=== PATIENT | female | born 1950 | race Caucasian/White ===

== ENCOUNTER → 2021-03-10 10:10 | Outpatient (BNVA) | payer MEDICARE, MEDICAID, SELFPAY | PROVIDERS: Family Provider Nurse Practitioner Family; PCP Registered Nurse; Visit Provider Registered Nurse | DX: Z11.52 Encounter for screening for COVID-19 (principal); Z20.822 Contact with and (suspected) exposure to COVID-19 | CPT/HCPCS: 87635 ==

== ENCOUNTER → 2021-03-16 11:11 | Outpatient (BNVA) | payer MEDICARE, MEDICAID, SELFPAY | PROVIDERS: Family Provider Nurse Practitioner Family; PCP Registered Nurse; Visit Provider Registered Nurse | DX: E78.5 Hyperlipidemia, unspecified (principal); J43.8 Other emphysema; I10 Essential (primary) hypertension; F17.200 Nicotine dependence, unspecified, uncomplicated; Z13.6 Encounter for screening for cardiovascular disorders | CPT/HCPCS: 80053; 80061; 85025 ==

== ENCOUNTER → 2023-05-31 10:55 | Outpatient (BNVA) | payer MEDICARE, MEDICAID, SELFPAY | PROVIDERS: Family Provider Nurse Practitioner Family; PCP Registered Nurse; Visit Provider Registered Nurse | DX: Z13.6 Encounter for screening for cardiovascular disorders (principal); E55.9 Vitamin D deficiency, unspecified; E53.8 Deficiency of other specified B group vitamins; E78.5 Hyperlipidemia, unspecified; Z12.31 Encounter for screening mammogram for malignant neoplasm of breast; J43.8 Other emphysema; Z12.2 Encounter for screening for malignant neoplasm of respiratory organs; M81.0 Age-related osteoporosis without current pathological fracture; Z00.00 Encounter for general adult medical examination without abnormal findings; Z71.85 Encounter for immunization safety counseling; F17.200 Nicotine dependence, unspecified, uncomplicated; Z23 Encounter for immunization; Z53.20 Procedure and treatment not carried out because of patient's decision for unspecified reasons; Z71.3 Dietary counseling and surveillance; Z71.82 Exercise counseling | CPT/HCPCS: 80053; 80061; 82306; 82607; 85025 ==

== ENCOUNTER 2023-06-14 09:45 | Outpatient (CLI) | payer MEDICARE, MEDICAID, SELFPAY ==
--- NOTE | 2023-06-14 10:00 | MM_ITS ---
WS: [email or web address] VIEWS: MLO and CC views both breasts. 3D digital tomosynthesis is also included in this exam. Comparison made with prior exam of 02/09/2012, 04/03/2013, 03/24/2014, 05/18/2015, 07/15/2019, Findings: There was no sign of mass, architectural distortion or suspicious calcification in either breast. The breasts are heterogeneously dense which may obscure small masses Impression: MM/[place] [id number] BI-RADS: 2-Benign finding. FOLLOW-UP: 1 Year Follow-up This mammogram was also analyzed by the Computer Aided Detection System [employer].
== END 2023-06-14 09:46 | disposition home or self-care (01) ==
LOC: MOBLMAM 09:53
PROVIDERS: PCP Registered Nurse; Visit Provider Registered Nurse
DX: Z12.31 Encounter for screening mammogram for malignant neoplasm of breast (principal)
CPT/HCPCS: 77063; 77067

== ENCOUNTER 2023-06-18 13:31 | Outpatient (CLI) | payer MEDICARE, MEDICAID, SELFPAY ==
--- NOTE | 2023-06-18 14:15 | CT_ITS ---
WS: [email or web address] LDCT LUNG CANCER SCREENING HISTORY: Z12.2 - Encounter for screening for malignant neoplasm of... TECHNIQUE: Axial imaging performed from the apices to 1 cm below the costophrenic angles. Coronal and sagittal reformats are submitted with axial MIP series. All CT scans at [facility] use at least one of these dose optimization techniques: automated exposure control; mA and/or kV adjustment per patient size (includes targeted exams where dose is matched to clinical indication); or iterativ e reconstruction. DLP: 55.99 mGy.cm DIvol: Mean CTDIvol: 1.00 (mGy) COMPARISON: None available. Diagnostic quality: Satisfactory Lungs: Mild LEFT apical gliosis and scarring. Calcified granuloma RIGHT middle lobe. Subpleural 3 mm nodule RIGHT lower lobe. No mass or pneumonia. No endobronchial lesions. Heart: Normal size heart with no pericardial effusion.. Other findings: Moderate calcification in the [place] coronary arteries. Mild atherosclerosis aorta. N o adenopathy. No pericardial or pleural effusions. Small hiatal hernia. IMPRESSION: CT/CT lung screening [id number] LUNG-RADS: 2-Benign Appearance or Behavior FOLLOW UP: 12 Month: Continue annual screening with LDCT OTHER FINDINGS (S MODIFIER): None.
--- NOTE | 2023-06-18 15:00 | XR_ITS ---
WS: [email or web address] DEXA (DUAL ENERGY X-RAY ABSORPTIOMETRY) Bone mineral density was performed using a Geckoboard machine. HISTORY: M81.0 - Age-related osteoporosis without current patholog... COMPARISON: 07/15/2019 Lumbar spine BMD (L1-L4): 1.029 g/cm2 T score: -1.3 Z score: 0.5 Total hip BMD: Left: 0.715 g/cm2. T score: -2.3 Z score: -0.8 Right: 0.704 g/cm2. T score: -2.4 Z score: -0.9 10 year probability of a major osteoporotic fracture is 32.6%. Compared to the prior study from 07/15/2019. Lumbar spine bone mineral density has increased by 6.2%. Bilateral hips bone mineral density has decreased by 7.4%. IMPRESSION: OSTEOPENIA based upon the WHO classification for females. Significant increase in bone mineral density within the lumbar spine since the prior study. Significant decrease in bone mineral density in the hips since the prior study.
== END 2023-06-18 13:32 | disposition home or self-care (01) ==
LOC: RAD 13:32
PROVIDERS: PCP Registered Nurse; Visit Provider Registered Nurse
DX: Z12.2 Encounter for screening for malignant neoplasm of respiratory organs (principal); M81.0 Age-related osteoporosis without current pathological fracture; J43.8 Other emphysema; M85.80 Other specified disorders of bone density and structure, unspecified site
CPT/HCPCS: 71271; 77080

== ENCOUNTER → 2024-06-10 14:06 | Outpatient (BNVA) | payer MEDICARE, MEDICAID, SELFPAY | PROVIDERS: PCP Registered Nurse; Visit Provider Registered Nurse | DX: Z13.6 Encounter for screening for cardiovascular disorders (principal) | CPT/HCPCS: 80053; 80061; 82306; 85025 ==

== ENCOUNTER 2024-06-27 10:23 | Outpatient (CLI) | payer MEDICARE, MEDICAID, SELFPAY ==
--- NOTE | 2024-06-27 10:30 | CT_ITS ---
WS: [email or web address] LDCT LUNG CANCER SCREENING TECHNIQUE: Noncontrast CT of the chest with coronal and sagittal reformatted images. CLINICAL INFORMATION: Z12.2 lung cancer screening COMPARISON: 2022 DLP: 60.57 mGy.cm DIvol: Mean CTDIvol: 0.90 (mGy) All CT scans at [facility] use at least one of these dose optimization techniques: automat ed exposure control; mA and/or kV adjustment per patient size (includes targeted exams where dose is matched to clinical indication); or iterative reconstruction. FINDINGS: A few calcified granulomas. Stable subpleural 3 mm nodule RIGHT lower lobe. No new suspicious pulmona ry parenchymal abnormalities. Slightly prominent pretracheal lymph node measuring 10 mm likely reacti ve. Otherwise no mediastinal or hilar lymphadenopathy. No axillary lymphadenopathy. Aortic calcification. Coronary calcification. Small esophageal hiatal hernia. Stable LEFT adrenal alvino noma measuring [address]/CT lung screening [id number] IMPRESSION: LUNG-RADS: 2-Benign Appearance or Behavior FOLLOW UP: 12 Month: Continue annual screening with LDCT
== END 2024-06-27 10:24 | disposition home or self-care (01) ==
LOC: RAD 10:24
PROVIDERS: PCP Registered Nurse; Visit Provider Registered Nurse
DX: Z12.2 Encounter for screening for malignant neoplasm of respiratory organs (principal); F17.210 Nicotine dependence, cigarettes, uncomplicated; J84.10 Pulmonary fibrosis, unspecified; R91.1 Solitary pulmonary nodule; I70.0 Atherosclerosis of aorta; I25.84 Coronary atherosclerosis due to calcified coronary lesion; K44.9 Diaphragmatic hernia without obstruction or gangrene; D35.02 Benign neoplasm of left adrenal gland
CPT/HCPCS: 71271

== ENCOUNTER 2024-07-02 12:47 | Outpatient (CLI) | payer MEDICARE, MEDICAID, SELFPAY ==
--- NOTE | 2024-07-02 13:00 | MM_ITS ---
WS: [email or web address] Bilateral screening 3D tomosynthesis digital mammogram, 07/02/2024 1:05 PM Clinical Data: SCREENING Comparison: 06/14/2023, 07/15/2019, 06/07/2015, 05/18/2015, 03/24/2014, 04/03/2013, 02/09/2012. Findings: No spiculated masses or clustered calcifications are seen. There are no secondary signs of carcinoma . MM/MM scr BI tomosynthesis [id number] Impression: Negative bilateral mammogram unchanged. Recommend annual screening mammograms. BIRADS: 1 - Negative. FOLLOW UP: 1 Year Follow-up DENSITY: There are scattered areas of fibroglandular density. The CAD schedule checker was used
== END 2024-07-02 12:48 | disposition home or self-care (01) ==
LOC: MOBLMAM 13:01
PROVIDERS: PCP Registered Nurse; Visit Provider Registered Nurse
DX: Z12.31 Encounter for screening mammogram for malignant neoplasm of breast (principal)
CPT/HCPCS: 77063; 77067

== ENCOUNTER → 2024-08-11 12:05 | Outpatient (BNVA) | payer MEDICARE, MEDICAID, SELFPAY | PROVIDERS: PCP Registered Nurse; Visit Provider Registered Nurse | DX: J06.9 Acute upper respiratory infection, unspecified (principal) | CPT/HCPCS: 87400 ==

== ENCOUNTER → 2025-04-23 11:01 | Outpatient (BNVA) | payer MEDICARE, MEDICAID, SELFPAY | PROVIDERS: PCP Registered Nurse; Visit Provider Registered Nurse | DX: R55 Syncope and collapse (principal) | CPT/HCPCS: 80053; 85025 ==

== ENCOUNTER 2025-07-29 12:41 | Outpatient (CLI) | payer MEDICARE, MEDICAID, SELFPAY ==
--- NOTE | 2025-07-29 12:40 | MM_ITS ---
WS: [email or web address] BILATERAL 3D TOMOSYNTHESIS DIGITAL SCREENING MAMMOGRAPHY WITH CAD CLINICAL INFORMATION: SCREENING HISTORY: Screening mammogram. No current complaints. COMPARISON: 2023 TECHNIQUE: Bilateral CC and MLO views. FINDINGS: The breasts are composed of heterogeneous fibroglandular density tissue, which can limit the detection of small underlying mass lesions. No suspicious mass, asymmetry, calcifications, or architectural distortion. No evidence of malignancy. MM/MM scr tomosynthesis [id number] IMPRESSION: DENSITY: The breasts are heterogeneously dense, which may obscure small masses. BI-RADS: 1 - Negative FOLLOW UP: 1 Year Follow-up Recommend return to annual screening mammography.
== END 2025-07-29 12:42 | disposition home or self-care (01) ==
LOC: MOBLMAM 12:46
PROVIDERS: PCP Registered Nurse; Visit Provider Registered Nurse
DX: Z12.31 Encounter for screening mammogram for malignant neoplasm of breast (principal); R92.323 Mammographic fibroglandular density, bilateral breasts; R92.333 Mammographic heterogeneous density, bilateral breasts
CPT/HCPCS: 77063; 77067

== ENCOUNTER → 2025-07-30 13:31 | Outpatient (BNVA) | payer MEDICARE, MEDICAID, SELFPAY | PROVIDERS: PCP Registered Nurse; Visit Provider Registered Nurse | DX: Z13.6 Encounter for screening for cardiovascular disorders (principal) | CPT/HCPCS: 80061 ==

== ENCOUNTER 2025-08-18 13:21 | Outpatient (CLI) | payer MEDICARE, MEDICAID, SELFPAY ==
--- NOTE | 2025-08-18 13:30 | XR_ITS ---
WS: [email or web address] SCREENING DEXA SCAN [employer] CLINICAL INFORMATION: M81.0 - Age-related osteoporosis without current patholog... COMPARISON: 2022 FINDINGS: The L1-L4 bone mineral density measures 0.897 g/cm2. This corresponds to a T score score of -2.4 and Z score of -0.3. Left femoral neck bone mineral density measures 0.658 g/cm2. This corresponds to a T score of -2.8 and Z score of -0.9. Right femoral neck bone mineral density measures 0.643 g/cm2. This corresponds to a T score -2.9of and Z score of -1.0. Mean femoral neck bone mineral density measures 0.650 g/cm2. This corresponds to a T score of -2.8 and Z score of -1.0. XR/XR DEXA axial skeleton* [id number] IMPRESSION: Osteopenia lumbar spine approaching osteoporosis. Osteoporosis femoral necks. Patient's FRAX calculated 10 year probability for major osteoporotic fracture i s 38.5% and osteoporotic hip fracture is 22.9%. Bone density lumbar spine decreased -12.8% Bone density femoral necks decrease -8.5%
--- NOTE | 2025-08-18 14:15 | CT_ITS ---
WS: [email or web address] LDCT LUNG CANCER SCREENING TECHNIQUE: Noncontrast CT of the chest with coronal and sagittal reformatted images. CLINICAL INFORMATION: Z87.891 - Personal history of nicotine dependence COMPARISON: 2023 DLP: 53.01 mGy.cm DIvol: Mean CTDIvol: 0.80 (mGy) All CT scans at [facility] use at least one of these dose optimization techniques: automated exposure control; mA and/or kV adjustment per patient size (includes targeted exams where dose is matched to clinical indication); or iterative reconstruction. FINDINGS: Moderate chronic vascular changes. Fibrosis in the lung apices. A few calcified granulomas. Stable subpleural 3 mm nodule RIGHT lower lobe. A few additional tiny scattered micronodules. No new suspicious pulmonary parenchymal abnormalities. Subsegmental atelectasis in the lingula. Slightly prominent pretracheal lymph node measuring 9-10 mm likely unchanged. No mediastinal or hilar lymphadenopathy. No axillary lymphadenopathy. Aortic calcification. Coronary calcification. Small esophageal hiatal hernia. Stable LEFT adrenal adenoma measuring [address]/CT lung screening [id number] IMPRESSION: LUNG-RADS: 2-Benign Appearance or Behavior FOLLOW UP: 12 Month: Continue annual screening with LDCT
== END 2025-08-18 13:22 | disposition home or self-care (01) ==
LOC: RAD 13:22
PROVIDERS: PCP Registered Nurse; Visit Provider Registered Nurse
DX: Z12.2 Encounter for screening for malignant neoplasm of respiratory organs (principal); Z87.891 Personal history of nicotine dependence; Z13.820 Encounter for screening for osteoporosis; M81.0 Age-related osteoporosis without current pathological fracture; J84.10 Pulmonary fibrosis, unspecified; J98.4 Other disorders of lung; R91.1 Solitary pulmonary nodule; J98.11 Atelectasis; R59.0 Localized enlarged lymph nodes; I25.10 Atherosclerotic heart disease of native coronary artery without angina pectoris; K44.9 Diaphragmatic hernia without obstruction or gangrene; D35.02 Benign neoplasm of left adrenal gland
CPT/HCPCS: 71271; 77080